=== PATIENT | female | born 1970 | race Caucasian/White ===

== ENCOUNTER → 2016-11-03 | Outpatient (CLI) | payer MEDICARE, MEDICAID ==
[~2016-11-03] MED LIST: AC500T PO; ARPZ20T PO; ASP81TEC PO; BUPR300T51 PO; CYCL10TA45; ESCI20TA2 PO; GADOBUTROL 7.5 MMOL/7.5 ML (GADAVIST) VIAL IV ONE; IBP800T PO; INTE0.3K2 SQ; OXYC-12 PO; PREG100C22 PO; SERT50TA9 PO; TOPI50TA2 PO; TRAZ150T42 PO; [UNRECOGNIZED DRUG - OTHER]
--- NOTE | 2016-11-03 11:53 | Diagnostic Imaging Report ---
PROCEDURE: MR imaging of the brain with and without contrast. TECHNIQUE: Multiplanar/multisequence MR imaging of the brain was performed with and without contrast. INDICATION: History of multiple sclerosis. Right sided weakness. CONTRAST: 6 mL of Gadovist was administered intravenously. COMPARISON: 07/26/2010. FINDINGS: There is no diffusion restriction to suggest an acute infarct or other diffusion abnormality. There are extensive periventricular and deep white matter T2 hyperintense signal abnormalities which could relate to the known history of multiple sclerosis. These findings could also overlap with chronic microvascular ischemic changes. The overall appearance, particularly in the periventricular white matter, demonstrates more prominent and confluent lesions. This could relate to a chronic increase in the demyelinating process or superimposed microvascular ischemic changes. There is no enhancing lesion seen. There is no significant signal abnormality in the brainstem. In the left cerebellar hemisphere and left cerebellar peduncle, there is T2 signal abnormality suggestive of a demyelinating plaque which appeared to be present on the 2011 study although better seen on the current exam. The central vascular flow-voids appear grossly unremarkable. There is normal size of the pituitary gland. No hypothalamic or pineal region mass. No hydrocephalus. No extra-axial fluid collection is seen. IMPRESSION: White matter findings are compatible with the provided history of multiple sclerosis. The lesions in the periventricular white matter appear to be slightly more prominent and more confluent when compared to the 2011 exam. Enhancement is a common feature of demyelinating lesions and is not seen on the current exam. Dictated by: Dictated on workstation # [id number]
--- NOTE | 2016-11-03 13:21 | Diagnostic Imaging Report ---
PROCEDURE: MR imaging cervical spine with and without contrast. TECHNIQUE: Multiplanar and multisequence MRI of the cervical spine was performed with and without contrast. INDICATION: History of multiple sclerosis. Right-sided weakness. 6 mL of Gadavist is administered intravenously. No prior studies are available for comparison. FINDINGS: The spinal cord is normal in caliber and contour. There are areas of increased faint poorly defined T2 signal within the spinal cord involving the entire length of the cervical spinal cord. These are seen on the axial images as well; however, the axial images in particular suffer from significant artifacts. Postcontrast images demonstrate no enhancing lesion. There is no significant swelling or edema which could relate to chronicity of these lesions. This, however, cannot be confirmed as no old studies are available. The posterior spinal line demonstrates normal alignment. C4 and C5 vertebral bodies are fused and are relatively small compared to the rest of the vertebral bodies. This is suggestive of a congenital or developmental fusion. There is no suspicious marrow signal abnormality. There is disc desiccation in the upper to mid cervical spine levels. C2/3: There is a minimal disc herniation without spinal canal or foramina stenosis. No cord compression. C3/4: There is a disc spur complex with no spinal canal stenosis. There is facet hypertrophy on the left with mild left foraminal stenosis. The right foramen is patent. The fused level at C4/5 demonstrates no spinal canal stenosis and no foraminal narrowing. C5/6: There is a spur disc complex with no spinal canal stenosis. No foraminal narrowing. C6/7: Unremarkable. IMPRESSION: 1. There is mild T2 hyperintensity signal abnormality within the cervical spinal cord which may relate to the provided history of multiple sclerosis. 2. Generally mild degenerative changes. 3. 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 Dictated by: Dictated on workstation # [id number]
== END ==
LOC: RAD 08:45
PROVIDERS: ATTEND Psychiatry & Neurology Neurology
DX: G35 Multiple sclerosis (principal); M43.22 Fusion of spine, cervical region
CPT/HCPCS: 70553; 72156

== ENCOUNTER → 2017-09-14 | Outpatient (CLI) | payer MEDICARE, MEDICAID ==
[~2017-09-14] MED LIST changes: -GADOBUTROL 7.5 MMOL/7.5 ML (GADAVIST) VIAL IV ONE
--- NOTE | 2017-09-14 11:17 | Diagnostic Imaging Report ---
INDICATION: Routine screening. COMPARISON: 09/20/2014. TECHNIQUE: 2D and 3D bilateral screening mammography was performed with CAD. FINDINGS: Both breasts remain heterogeneously dense, limiting the sensitivity of mammography. No mass or malignant appearing microcalcifications are seen. There are benign calcifications bilaterally. The axillae are unremarkable. IMPRESSION: No mammographic features suspicious for malignancy are identified. ACR BI-RADS Category 2: Benign findings. Result letter will be mailed to the patient. Note: At least 10% of breast cancer is not imaged by mammography. Dictated by: Dictated on workstation # [id number]
== END ==
LOC: RAD 08:25
PROVIDERS: ATTEND Nurse Practitioner Primary Care
DX: Z12.31 Encounter for screening mammogram for malignant neoplasm of breast (principal)
CPT/HCPCS: 77067

== ENCOUNTER 2017-09-22 15:25 | Emergency (ER) | payer MEDICARE, MEDICAID ==
[~2017-09-22] VITALS: Ht 162.6 cm; Wt 63.5 kg
--- NOTE | 2017-09-22 15:49 | ED General ---
General Chief Complaint: Chest Wall/Rib Pain Stated Complaint: HARD TIME BREATHING Source of Information: Patient Exam Limitations: No Limitations History of Present Illness Date Seen by Provider: Sep 22, 2017 Time Seen by Provider: 15:45 Initial Comments Patient is a 47-year-old female who presents to the emergency room with complaints of left-sided rib pain that started after she fell over a weight bench in her kitchen 3 days ago. She reports increased pain with deep breathing. She denies hitting her head, or neck pain. Timing/Duration: 2-3 Days Modifying Factors: improves with Movement Allergies and Home Medications Allergies Coded Allergies: Sulfa (Sulfonamide Antibiotics) (Verified Allergy, Unknown, 08/02/05) gabapentin (Unverified Allergy, RASH, ITCHING, 02/07/11) Home Medications Aripiprazole 20 Mg Tab, 1 TAB PO DAILY, (Reported) DAILY Aspirin 81 Mg Tabec, 81 MG PO DAILY, (Reported) Bupropion Hcl 300 Mg Tab.sr.24h, 300 MG PO DAILY, (Reported) Ibuprofen 800 Mg Tab, 800 MG PO NEEDED, (Reported) TAKE NEEDED FOR PAIN Oxycodone Hcl/Acetaminophen 1 Each Tablet, 1-2 EACH PO Q4H, (Reported) Pregabalin 100 Mg Capsule, 100 MG PO QID, (Reported) Sertraline Hcl 50 Mg Tablet, 50 MG PO DAILY, (Reported) Topiramate 50 Mg Tablet, 50 MG PO BID, (Reported) Trazodone Hcl 150 Mg Tablet, 150 MG PO HS, (Reported) Patient Home Medication List Home Medication List Reviewed: Yes Review of Systems Constitutional: see HPI; No chills, No fever Respiratory: see HPI; No cough, No dyspnea on exertion; other (pain with deep breathing) All Other Systems Reviewed Negative Unless Noted: Yes Past Lvlmqld-Vsxozp-Nfjmhu Hx Past Med/Social Hx: Reviewed Nursing Past Med/Soc Hx Immunizations Up To Date Date of Influenza Vaccine: Dec 10, 2010 Past Medical History Reproductive Disorders: Yes (REFRACTORY DUB) Family Medical History Reviewed Nursing Family Hx Physical Exam Vital Signs Vital Signs - First Documented 09/22/17 15:32 Temp 99.0 Pulse 89 Resp 18 B/P (MAP) 115/81 (92) Pulse Ox 99 O2 Delivery Room Air Capillary Refill : Height, Weight, BMI Height: '" Weight: lbs. oz. kg; BMI Method: General Appearance: No Apparent Distress, WD/WN Respiratory: Lungs Clear, Normal Breath Sounds, No Accessory Muscle Use, No Respiratory Distress, Other (tenderness to her left ribs on palpation, no abrasions or ecchymosis noted.) Cardiovascular: Regular Rate, Rhythm, No Edema, No Gallop, No JVD, No Murmur, Normal Peripheral Pulses Neurologic/Psychiatric: Alert, Oriented x3, Normal Mood/Affect Skin: Normal Color, Warm/Dry Progress/Results/Core Measures Suspected Sepsis SIRS Temperature: Pulse: Respiratory Rate: Blood Pressure / Mean: Results/Orders My Orders Orders - JAMIL SANDRA Ribs, Left 2-3 Views (09/22/17 15:43) Vital Signs/I&O Capillary Refill : Progress Note : Progress Note I've seen and evaluated the patient. She was informed of normal imaging studies. Patient agrees with plan of care, plans for discharge, close follow-up with primary care provider. Return precautions were given. Departure Impression Primary Impression: Rib pain Additional Impression: Rib contusion Qualified Codes: S20.212A - Contusion of left front wall of thorax, initial encounter Disposition: 01 HOME, SELF-CARE Condition: Stable/Unchanged Departure-Patient Inst. Decision time for Depature: 16:49 Referrals: MADHAV GARDNER DO (PCP) Primary Care Physician MEÑO MSATERS APRN (Family) Primary Care Physician Patient Instructions: Contusion (DC) Add. Discharge Instructions: You may use ibuprofen and Tylenol as directed by the bottle for pain. Follow-up with your doctor within 1 week for recheck. Return back to the emergency room for any worsening symptoms or concerns as needed. All discharge instructions reviewed with patient and/or family. Voiced understanding. JAMIL SANDRA Sep 22, 2017 15:49
--- NOTE | 2017-09-22 16:46 | Diagnostic Imaging Report ---
CLINICAL INDICATION: Patient fell a week ago landing on left side. Patient has pain in area since. No bruising or shortness of breath noted. EXAM: X-ray of the left ribs, three views. COMPARISON: Chest x-ray dated 10/15/2007. FINDINGS AND IMPRESSION: There is no gross fracture involving the left ribs. Left lung is clear. There is no pneumothorax. Dictated by: Dictated on workstation # [id number]
[2017-09-22 17:08] VITALS: BP 115/81
== END 2017-09-22 17:08 | disposition home or self-care (01) ==
LOC: EDUNIT# 15:25 → ER 15:28
DX: S20.212A Contusion of left front wall of thorax, initial encounter (principal); Z88.2 Allergy status to sulfonamides; Z88.8 Allergy status to other drugs, medicaments and biological substances; Z79.82 Long term (current) use of aspirin; W01.0XXA Fall on same level from slipping, tripping and stumbling without subsequent striking against object, initial encounter; Y92.000 Kitchen of unspecified non-institutional (private) residence as the place of occurrence of the external cause
CPT/HCPCS: 71100

== ENCOUNTER 2018-01-05 20:08 | Emergency (ER) | payer MEDICARE, MEDICAID ==
[~2018-01-05] VITALS: Ht 162.6 cm; Wt 56.7 kg
[2018-01-05] MEDS ORDERED: PANT40TA3 (20:21)
[2018-01-05] MEDS ORDERED: FLUO20CA25 (20:21)
[2018-01-05] MEDS ORDERED: PRAV40TA2 (20:21)
--- NOTE | 2018-01-05 21:14 | ED Cough/URI ---
General Chief Complaint: Cough/Cold/Flu Symptoms Stated Complaint: COUGH Nursing Triage Note: cough Source: patient History of Present Illness Date Seen by Provider: Jan 05, 2018 Time Seen by Provider: 20:57 Initial Comments PT ARRIVES VIA POV FROM HOME C/O NON-PRODUCTIVE COUGH X 1 WEEK--STATES SHE HAS MUCOUS IN HER CHEST BUT CANNOT COUGH IT UP C/O LEFT LOWER RIB PAIN, ESPECIALLY WITH COUGHING OR DEEP BREATHING NO ACTUAL SHORTNESS OF BREATH HAD TEMP OF 99 NO KNOWN SICK CONTACTS NO RELIEF WITH OTC MEDICATIONS FOR COUGH/CONGESTION/COLD/SINUS, OR IBUPROFEN HAS NOT SOUGHT CARE UNTIL TODAY SYMPTOMS NO DIFFERENT TODAY. PT SMOKES 1 PPD OF CIGARETTES, WELL THC MALE S.O. ALSO SMOKES LMP--PT HAS HAD HYST IN 2011 PCP: SRIKANTH-Alysha Allergies and Home Medications Allergies Coded Allergies: Sulfa (Sulfonamide Antibiotics) (Verified Allergy, Unknown, 08/02/05) gabapentin (Unverified Allergy, RASH, ITCHING, 02/07/11) Home Medications Aripiprazole 20 Mg Tab, 1 TAB PO DAILY, (Reported) DAILY Aspirin 81 Mg Tabec, 81 MG PO DAILY, (Reported) Benzonatate 100 Mg Capsule, 1-2 TAB PO TID Prescribed by: MIGUEL ÁNGEL PAZ on 01/05/182310 Guaifenesin/Dextromethorphan 1 Each Tbmp.12hr, 1 EACH PO BID Prescribed by: MIGUEL ÁNGEL PAZ on 01/05/182310 Ibuprofen 800 Mg Tab, 800 MG PO NEEDED, (Reported) TAKE NEEDED FOR PAIN Levofloxacin 500 Mg Tablet, 500 MG PO DAILY Prescribed by: MIGUEL ÁNGEL PAZ on 01/05/182310 Methylprednisolone 4 Mg Tab.ds.pk, 4 MG PO UD Prescribed by: MIGUEL ÁNGEL PZA on 01/05/182310 Pregabalin 100 Mg Capsule, 100 MG PO QID, (Reported) Topiramate 50 Mg Tablet, 50 MG PO BID, (Reported) Trazodone Hcl 150 Mg Tablet, 150 MG PO HS, (Reported) Patient Home Medication List Home Medication List Reviewed: Yes Review of Systems Review of Systems Constitutional: see HPI, fever EENTM: see HPI, tearing (LEFT EYE), nose congestion; No throat pain Respiratory: see HPI, cough; No short of breath, No wheezing Cardiovascular: see HPI, chest pain Gastrointestinal: no symptoms reported Genitourinary: no symptoms reported : No Musculoskeletal: see HPI Skin: no symptoms reported Psychiatric/Neurological: No Symptoms Reported Hematologic/Lymphatic: No Symptoms Reported Immunological/Allergic: no symptoms reported Past Aafvjvb-Zxfrnc-Dvzafr Hx Patient Social History Alcohol Use: Past History (HISTORY OF USE/ABUSE) Recreational Drug Use: Yes (THC) Drug of Choice: THC Smoking Status: Current Everyday Smoker (1 PPD) Type Used: Cigarettes (1 PPD) 2nd Hand Smoke Exposure: No Recent Foreign Travel: No Contact w/Someone Who Travel: No Recent Infectious Disease Expo: No Recent Hopitalizations: No Immunizations Up To Date Tetanus Booster (TDap): Unknown Date of Influenza Vaccine: Dec 10, 2010 Seasonal Allergies Seasonal Allergies: No Past Medical History Surgeries: Yes (ENDOMETRIAL ABLATION; HYST/OVARIES INTACT 2011; CYSTS REMOVED FROM ABDOMEN AND FROM BREAST-BENIGN) Hysterectomy, Tubal Ligation Respiratory: No Cardiac: No Neurological: Yes Headaches /Migraines, Multiple Sclerosis : No 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 oz. [id number]; 24.03 BMI Method:Stated General Appearance: no apparent distress, thin, other (OCCASIONAL DRY COUGH, UNKEMPT, CLOTHING COVERED IN ANIMAL HAIR) HEENT: PERRL/EOMI, TMs normal, pharynx normal, other (CLEAR POST NASAL DRAINAGE. NO SINUS TENDERNESS. 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, no motor/sensory deficits, alert, oriented x 3 Skin: warm/dry, pallor, tattoos/piercings (EXTENSIVE TATTOOS) Focused Exam Lactate Level 01/05/18 22:00: Lactic Acid Level 0.48L Lactic Acid Level Laboratory Tests Test 01/05/18 22:00 Lactic Acid Level 0.48 MMOL/L (0.50-2.00) L Progress/Results/Core Measures Suspected Sepsis Recent Fever Within 48 Hours: No Infection Criteria Present: None New/Unexplained Altered Menta: No Sepsis Screen: No Definite Risk SIRS Temperature:98.1 Pulse: 89 Respiratory Rate: 18 Laboratory Tests 01/05/18 22:00: White Blood Count 13.6H Blood Pressure 93 /60 Mean: 71 01/05/18 22:00: Lactic Acid Level 0.48L Laboratory Tests 01/05/18 22:00: Creatinine 0.66, Platelet Count 484H, Total Bilirubin 0.3 Results/Orders Lab Results Laboratory Tests Test 01/05/18 22:00 Range/Units White Blood Count 13.6 H 4.3-11.0 10^3/uL Red Blood Count 3.87 L 4.35-5.85 10^6/uL Hemoglobin 11.7 11.5-16.0 G/DL Hematocrit 35 35-52 % Mean Corpuscular Volume 91 80-99 FL Mean Corpuscular Hemoglobin 30 25-34 PG Mean Corpuscular Hemoglobin Concent 33 32-36 G/DL Red Cell Distribution Width 13.4 10.0-14.5 % Platelet Count 484 H 130-400 10^3/uL Mean Platelet Volume 8.6 7.4-10.4 FL Neutrophils (%) (Auto) 68 42-75 % Lymphocytes (%) (Auto) 21 12-44 % Monocytes (%) (Auto) 9 0-12 % Eosinophils (%) (Auto) 2 0-10 % Basophils (%) (Auto) 1 0-10 % Neutrophils # (Auto) 9.2 H 1.8-7.8 X 10^3 Lymphocytes # (Auto) 2.8 1.0-4.0 X 10^3 Monocytes # (Auto) 1.2 H 0.0-1.0 X 10^3 Eosinophils # (Auto) 0.3 0.0-0.3 10^3/uL Basophils # (Auto) 0.1 0.0-0.1 10^3/uL Sodium Level 141 135-145 MMOL/L Potassium Level 3.5 L 3.6-5.0 MMOL/L Chloride Level 108 H 98-107 MMOL/L Carbon Dioxide Level 22 21-32 MMOL/L Anion Gap 11 5-14 MMOL/L Blood Urea Nitrogen 7 7-18 MG/DL Creatinine 0.66 0.60-1.30 MG/DL Estimat Glomerular Filtration Rate > 60 BUN/Creatinine Ratio 11 Glucose Level 110 H 70-105 MG/DL Lactic Acid Level 0.48 L 0.50-2.00 MMOL/L Calcium Level 9.3 8.5-10.1 MG/DL Corrected Calcium 9.7 8.5-10.1 MG/DL Total Bilirubin 0.3 0.1-1.0 MG/DL Aspartate Amino Transf (AST/SGOT) 11 5-34 U/L Alanine Aminotransferase (ALT/SGPT) 11 0-55 U/L Alkaline Phosphatase 81 40-136 U/L Total Protein 7.4 6.4-8.2 GM/DL Albumin 3.5 3.2-4.5 GM/DL Micro Results Microbiology 01/05/18 Influenza Types A,B Antigen (PHAN) - Final, Complete My Orders Orders - MIGUEL ÁNGEL PAZ DO Chest Pa/Lat (2 View) (01/05/18 21:05) Saline Lock/Iv-Start (01/05/18 21:52) Cbc With Automated Diff (01/05/18 21:52) Comprehensive Metabolic Panel (01/05/18 21:52) Lactic Acid Analyzer (01/05/18 21:52) Blood Culture (01/05/18 21:52) Influenza A And B Antigens (01/05/18 21:52) Ceftriaxone For Iv Use (Rocephin For I (01/05/18 22:00) Acetaminophen Tablet (Tylenol Tablet) (01/05/18 23:00) Benzonatate Capsule (Tessalon Perles) (01/05/18 23:15) Benzonatate Capsule (Tessalon Perles) (01/05/18 23:08) Medications Given in ED Current Medications Medications Dose Ordered Sig/Devora Route Start Time Stop Time Status Last Admin Dose Admin Acetaminophen 1,000 mg ONCE ONCE PO 01/05/18 23:00 01/05/18 23:01 DC 01/05/18 23:06 1,000 MG Ceftriaxone Sodium 1000 mg/ Sodium Chloride 60 ml @ 100 mls/hr ONCE ONCE IV 01/05/18 22:00 01/05/18 22:35 DC 01/05/18 22:29 100 MLS/HR Vital Signs/I&O 01/05/18 01/05/18 01/05/18 01/05/18 20:10 20:10 23:06 23:17 Temp 98.1 98.1 100.5 Pulse 89 75 Resp 18 18 B/P (MAP) 93/60 (71) 93/61 (72) Pulse Ox 95 99 O2 Delivery Room Air Room Air Room Air 01/06/18 00:00 Intake Total 60 ml Balance 60 ml Capillary Refill : Less Than 3 Seconds Blood Pressure Mean: 71 Progress Note : Progress Note NO DETERIORATION IN PT'S CONDITION DURING ER STAY BP IN 90'S SYSTOLIC, BUT THIS APPEARS TO BE PT'S NORMAL BP, SHE IS VERY THIN AND PETITE, AND HAS HAD BP'S IN THIS RANGE IN THE PAST. NO TACHYCARDIA OR TACHYPNEA NO DYSPNEA NO HYPOXIA. Diagnostic Imaging Comments CXR--LEFT BASILAR PNEUMONIA, CANNOT R/O UNDERLYING NODULE. PER RADIOLOGIST REPORT @ 2201 Reviewed: Reviewed by Me Departure Communication (Admissions) 2300--SPOKE WITH DR. GARDNER, WILL SEE PT IN CLINIC THIS WEEK FOR FOLLOW UP --PT TO CALL IN AM FOR APPOINTMENT. WILL TREAT WITH ANTIBIOTICS, PT WILL NOT GIVE TAMIFLU, PT'S SYMPTOMS HAVE BEEN ONGOING FOR A WEEK, AND IS OUTSIDE TREATMENT PARAMETERS. Impression Primary Impression: LLL pneumonia Additional Impressions: Smoker Second hand tobacco smoke exposure Influenza B Disposition: HOME, SELF-CARE Condition: Stable Departure-Patient Inst. Referrals: [facility] (PCP/Family) Primary Care Physician Patient Instructions: Flu, Adult (DC), Pneumonia, Adult (DC) Add. Discharge Instructions: HOME, REST LOTS OF CLEAR LIQUIDS TYLENOL AND MOTRIN NEEDED FOR PAIN OR FEVER FOLLOW UP WITH [facility] THIS WEEK FOR FURTHER CARE--CALL IN AM FOR APPOINTMENT All discharge instructions reviewed with patient and/or family. Voiced understanding. Scripts Methylprednisolone (Medrol) 4 Mg Tab.ds.pk 4 MG PO UD, #1 PKG Prov: MIGUEL ÁNGEL PAZ DO 01/05/18 Benzonatate (TESSALON PERLES) 100 Mg Capsule 1-2 TAB PO TID for Cough, #30 CAP Prov: MIGUEL ÁNGEL PAZ DO 01/05/18 Guaifenesin/Dextromethorphan (Mucinex Dm ER 1,200-60 mg Tab) 1 Each Tbmp.12hr 1 EACH PO BID for 10 Days, #20 EA Prov: MIGUEL ÁNGEL PAZ DO 01/05/18 Levofloxacin (Levaquin) 500 Mg Tablet 500 MG PO DAILY for INFECTION, #10 TAB Prov: MIGUEL ÁNGEL PAZ DO 01/05/18 MIGUEL ÁNGEL PAZ DO Jan 05, 2018 21:14
--- NOTE | 2018-01-05 21:58 | Diagnostic Imaging Report ---
INDICATION: Cough. Shortness of air. COMPARISON: 09/22/2017 FINDINGS: Frontal and lateral radiographic views of the chest were obtained and demonstrate patchy and confluent alveolar opacities within the left lung base. There is more focal nodular area just lateral to the left heart border that measures 2 cm in diameter. Right lung is relatively clear. There is no large effusion or pneumothorax on either side. Cardiac silhouette and pulmonary vasculature are within normal limits. IMPRESSION: 1. Findings consistent with left basilar pneumonia. Followup to resolution is recommended to exclude underlying pulmonary nodule. Dictated by: Dictated on workstation # [id number]
[2018-01-05] MEDS ORDERED: cefTRIAXone FOR IV USE 1,000 MG in NS (IVPB) 50 ML IV ONE (22:00)
[2018-01-05 22:17] LABS: BASOPHILS # (AUTO) 0.1 10^3/uL (0.0-0.1); BASOPHILS % (AUTO) 1 % (0-10); EOSINOPHILS # (AUTO) 0.3 10^3/uL (0.0-0.3); EOSINOPHILS % (AUTO) 2 % (0-10); HEMATOCRIT 35 % (35-52); HEMOGLOBIN 11.7 G/DL (11.5-16.0); LYMPHOCYTES # (AUTO) 2.8 X 10^3 (1.0-4.0); LYMPHOCYTES % (AUTO) 21 % (12-44); MEAN CORPUSCULAR HEMOGLOBIN 30 PG (25-34); MEAN CORPUSCULAR HGB CONC 33 G/DL (32-36); MEAN CORPUSCULAR VOLUME 91 FL (80-99); MEAN PLATELET VOLUME 8.6 FL (7.4-10.4); MONOCYTES # (AUTO) 1.2 X 10^3 (0.0-1.0); MONOCYTES % (AUTO) 9 % (0-12); NEUTROPHILS # (AUTO) 9.2 X 10^3 (1.8-7.8); NEUTROPHILS % (AUTO) 68 % (42-75); PLATELET COUNT 484 10^3/uL (130-400); RED BLOOD COUNT 3.87 10^6/uL (4.35-5.85); RED CELL DISTRIBUTION WIDTH 13.4 % (10.0-14.5); WHITE BLOOD COUNT 13.6 10^3/uL (4.3-11.0)
[2018-01-05 22:53] LABS: ALANINE AMINOTRANSFERASE 11 U/L (0-55); ALBUMIN 3.5 GM/DL (3.2-4.5); ALKALINE PHOSPHATASE 81 U/L (40-136); BILIRUBIN,TOTAL 0.3 MG/DL (0.1-1.0); BUN/CREATININE RATIO 11; CALCIUM 9.3 MG/DL (8.5-10.1); CARBON DIOXIDE 22 MMOL/L (21-32); CHLORIDE 108 MMOL/L (98-107); CREATININE SERUM 0.66 MG/DL (0.60-1.30); GFR ESTIMATED > 60; GLUCOSE 110 MG/DL (70-105); POTASSIUM 3.5 MMOL/L (3.6-5.0); SODIUM 141 MMOL/L (135-145); TOTAL PROTEIN 7.4 GM/DL (6.4-8.2)
[2018-01-05] MEDS ORDERED: ACETAMINOPHEN 500 MG TAB (TYLENOL) PO ONE (23:00)
[2018-01-05] MEDS ORDERED: BENZONATATE 100 MG (TESSALON) CAPSULE PO ONE (23:08)
[2018-01-05] MEDS ORDERED: GUAI1TBM19 PO (23:11)
[2018-01-05] MEDS ORDERED: BENZ100C18 PO (23:11)
[2018-01-05] MEDS ORDERED: LEVO500T2 PO (23:11)
[2018-01-05] MEDS ORDERED: METH4TAB PO (23:11)
[2018-01-05] MEDS ORDERED: BENZONATATE 100 MG (TESSALON) CAPSULE PO SCH (23:15)
[2018-01-05 23:17] VITALS: BP 93/61
== END 2018-01-05 23:17 | disposition home or self-care (01) ==
LOC: EDUNIT# 20:08 → ER 20:10
DX: J18.1 Lobar pneumonia, unspecified organism (principal); J10.1 Influenza due to other identified influenza virus with other respiratory manifestations; G43.909 Migraine, unspecified, not intractable, without status migrainosus; G35 Multiple sclerosis; K21.9 Gastro-esophageal reflux disease without esophagitis; F41.9 Anxiety disorder, unspecified; F32.9 Major depressive disorder, single episode, unspecified; F12.10 Cannabis abuse, uncomplicated; F17.210 Nicotine dependence, cigarettes, uncomplicated; Z90.710 Acquired absence of both cervix and uterus; Z98.51 Tubal ligation status; Z88.2 Allergy status to sulfonamides; Z88.8 Allergy status to other drugs, medicaments and biological substances; Z79.82 Long term (current) use of aspirin; Z79.52 Long term (current) use of systemic steroids
CPT/HCPCS: 36415; 71046; 80053; 83605; 85025; 87040; 87804

== ENCOUNTER 2021-07-23 15:26 | Emergency (ER) | payer MEDICARE, MEDICAID ==
[~2021-07-23] VITALS: Ht 162.5 cm; Wt 54.4 kg
[~2021-07-23 15:26] MED LIST changes: +BENZ100C18 PO; +FLUO20CA48; +GUAI1TBM19 PO; +LEVO500T2 PO; +METH4TAB PO; +PANT40TA52; +PRAV40TA2
[2021-07-23 16:12] VITALS: BP 107/75
--- NOTE | 2021-07-23 16:13 | ED Hip Pain/Injury ---
General Chief Complaint: Hip/Pelvic Problems Stated Complaint: R HIP PAIN X 1 MONTH Source: patient Exam Limitations: no limitations (JEREMY WADSWORTH APRN) History of Present Illness Date Seen by Provider: Jul 23, 2021 Time Seen by Provider: 16:05 Initial Comments This is a 51-year-old female who presented to the ER via POV with complaints of right hip pain x1 month. States that she has persistent pain every day and will occasionally have intermittent increased sharp stabbing pain. Denies any trauma or injury. Uses a cane to ambulate. Pain is worse with movement and better with Tylenol or Ibuprofen. States pain will now radiate down her lateral right hip. Denies any back pain. No fever, chills, nausea, vomiting, abdominal pain. (JEREMY WADSWORTH APRN) Allergies and Home Medications Allergies Coded Allergies: Sulfa (Sulfonamide Antibiotics) (Verified Allergy, Unknown, 08/02/05) gabapentin (Unverified Allergy, Unknown, RASH, ITCHING, 07/23/21) Patient Home Medication List Home Medication List Reviewed: Yes (JEREMY WADSWORTH APRN) Aripiprazole (Abilify 20 Mg) 20 Mg Tab, 1 TAB PO DAILY, (Reported) Entered as Reported by: SARA MANUEL on 02/07/11 0857 Aspirin (Aspirin Ec 81 Mg) 81 Mg Tabec, 81 MG PO DAILY, (Reported) Entered as Reported by: SARA MANUEL on 02/07/11 0857 Benzonatate (Tessalon Perles) 100 Mg Capsule, 1-2 TAB PO TID Prescribed by: MIGUEL ÁNGEL PAZ on 01/05/182310 Diclofenac Sodium (Voltaren Arthritis Pain) 1 % Gel..gram., 1 APPLIC TP Q6H PRN for PAIN-BREAKTHROUGH Prescribed by: JEREMY WADSWORTH on 07/23/211808 Fluoxetine HCl (Fluoxetine HCl) 20 Mg Capsule, (Reported) Entered as Reported by: LAURENCE BEYER on 01/05/182020 Guaifenesin/Dextromethorphan (Mucinex Dm ER 1,200-60 mg Tab) 1 Each Tbmp.12hr, 1 EACH PO BID Prescribed by: MIGUEL ÁNGEL PAZ on 01/05/182310 Ibuprofen (Motrin) 800 Mg Tab, 800 MG PO NEEDED, (Reported) Entered as Reported by: SARA MANUEL on 02/07/11856 Levofloxacin (Levaquin) 500 Mg Tablet, 500 MG PO DAILY Prescribed by: MIGUEL ÁNGEL PAZ on 01/05/182310 Methylprednisolone (Medrol) 4 Mg Tab.ds.pk, 4 MG PO UD Prescribed by: MIGUEL ÁNGEL PAZ on 01/05/182310 Pantoprazole Sodium (Pantoprazole Sodium) 40 Mg Tablet., (Reported) Entered as Reported by: LAURENCE BEYER on 01/05/182020 Pravastatin Sodium (Pravastatin Sodium) 40 Mg Tablet, (Reported) Entered as Reported by: LAURENCE BEYER on 01/05/182020 Pregabalin (Lyrica) 100 Mg Capsule, 100 MG PO QID, (Reported) Entered as Reported by: SARA MANUEL on 02/07/11856 Topiramate (Topiramate) 50 Mg Tablet, 50 MG PO BID, (Reported) Entered as Reported by: SARA MANUEL on 02/07/11856 Trazodone Hcl (Trazodone Hcl) 150 Mg Tablet, 150 MG PO HS, (Reported) Entered as Reported by: SARA MANUEL on 02/07/11856 Review of Systems Constitutional: see HPI EENTM: no symptoms reported Respiratory: no symptoms reported Cardiovascular: no symptoms reported Gastrointestinal: no symptoms reported Musculoskeletal: see HPI Skin: no symptoms reported Psychiatric/Neurological: No Symptoms Reported (JEREMY WADSWORTH APRN) Past Tvaykvq-Uhwghk-Cxvosk Hx Immunizations Up To Date Tetanus Booster (TDap): Unknown (JEREMY WADSWORTH APRN) Seasonal Allergies Seasonal Allergies: No (JEREMY WADSWORTH APRN) Past Medical History Surgeries: Yes Hysterectomy, Tubal Ligation Respiratory: No Cardiac: No Neurological: Yes Headaches /Migraines, Multiple Sclerosis Reproductive Disorders: Yes (REFRACTORY DUB) 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 oz. 56.540824so; 24.03 BMI Method:Stated General Appearance: No Apparent Distress, WD/WN HEENT: PERRL/EOMI, Normal ENT Inspection Neck: Full Range of Motion, Normal Inspection Cardiovascular: Regular Rate, Rhythm, No Murmur Respiratory: Lungs Clear, Normal Breath Sounds Gastrointestinal: Normal Bowel Sounds, Non Tender, Soft Back: Normal Inspection Extremity: Normal Capillary Refill, Normal Inspection, No Calf Tenderness; No Swelling; Other (Right hip pain, skin pink, warm dry, pedal pulse 2+ and regular. ) Neurologic/Psychiatric: Alert, Oriented x3, No Motor/Sensory Deficits, Normal Mood/Affect Skin: Normal Color, Warm/Dry (JEREMY WADSWORTH APRN) Progress/Results/Core Measures Results/Orders Vital Signs/I&O 07/23/21 16:12 Temp 36.8 Pulse 81 Resp 18 B/P (MAP) 107/75 (86) Pulse Ox 96 (MURIEL PENNY MD) Progress Progress Note : Progress Note Patient examined and in no acute distress. Neurovascular intact distal to right hip, good pulses good color. She ambulated independently with a cane to Jostle- track 2. Orders placed for imaging of her right hip which did not reveal any acute fractures. She does have some degenerative changes, questionable concerns for AVN. Reviewed imaging with Dr. Avitia, orthopedic surgeon on-call. States that patient can bear weight as tolerated, utilize cane when ambulating. She can follow-up outpatient in office. Discharge plan of care reviewed with patient she is agreeable with plan. (JEREMY WADSWORTH APRN) Diagnostic Imaging Diagonstic Imaging: Xray Comments [facility], [place] NAME: JORDAN THOMAS [facility] REC#: [id number] PT STATUS: REG ER : 1970 PHYSICIAN: JEREMY WADSWORTH APRN ADMIT DATE: 07/23/21/ER Signed Date of Exam:07/23/21 PELVIS WITH RIGHT HIP 2-3VIEWS INDICATION: Hip pain. TECHNIQUE: AP pelvis and two-view right hip performed. COMPARISON: Exam correlated with hip radiographs of 07/25/2010. FINDINGS: There is progressive right greater than left hip joint space narrowing, articular irregularity, flattening, osteophytes, and subcortical cyst as well as patchy heterogeneous sclerosis and at least some degree of articular collapse of its weightbearing surface. No acute bony abnormality is found. The contralateral left hip by comparison shows mild degenerative changes. There are some soft tissue calcifications of the buttocks projecting over the lateral iliac bones. No symphyseal or SI joint diastasis. IMPRESSION: Progressive sclerosis, lucency, and articular collapse of the degenerated right hip, sequelae of AVN could not be excluded. Femoral neck and trochanters are intact and an acute-appearing abnormality is not identified. Dictated by: Dictated on workstation # [id number] Dict: 07/23/21 1648 Trans: 07/23/21 1711 [id number] Interpreted by: MERLY HAUSER Electronically signed by: MERLY HAUSER 07/23/21 171 (JEREMY WADSWORTH SENIOR TECHNICAL PROJECT MANAGER) Departure Impression Primary Impression: Degenerative arthritis of hip Disposition: 01 HOME, SELF-CARE Condition: Stable Departure-Patient Inst. Decision time for Depature: 17:33 (JEREMY WADSWORTH SENIOR TECHNICAL PROJECT MANAGER) Referrals: [facility] (PCP/Family) Primary Care Physician Patient Instructions: LOCAL PHYSICIAN LIST, Osteoarthritis (DC) Add. Discharge Instructions: Plan: 1. Rest. Weight bearing as tolerated. Walk with cane. 2. May take Tylenol or Ibuprofen as needed for pain per package. 3. You can try a small amount of Diclofenac gel up to 4x per day. 4. Follow up with orthopedic provider of choice, you have been given a list of local providers. 5. Return to ER for any new, concerning, or worsening symptoms. All discharge instructions reviewed with patient and/or family. Voiced understa nding. Scripts Diclofenac Sodium (Voltaren Arthritis Pain) 1 % Gel..gram. 1 APPLIC TP Q6H PRN for PAIN-BREAKTHROUGH, #20 GM 0 Refills Prov: JEREMY WADSWORTH SENIOR TECHNICAL PROJECT MANAGER 07/23/21 ATTENDING PHYSICIAN NOTE: I was physically present as attending physician in the emergency department during the care of this patient, but I was not directly involved in the decision making or delivery of care for this patient. (MURIEL PENNY MD) JEREMY WADSWORTH APRN Jul 23, 2021 16:13 MURIEL PENNY MD Jul 25, 2021 21:16
--- NOTE | 2021-07-23 16:58 | Diagnostic Imaging Report ---
INDICATION: Hip pain. TECHNIQUE: AP pelvis and two-view right hip performed. COMPARISON: Exam correlated with hip radiographs of 07/25/2010. FINDINGS: There is progressive right greater than left hip joint space narrowing, articular irregularity, flattening, osteophytes, and subcortical cyst as well as patchy heterogeneous sclerosis and at least some degree of articular collapse of its weightbearing surface. No acute bony abnormality is found. The contralateral left hip by comparison shows mild degenerative changes. There are some soft tissue calcifications of the buttocks projecting over the lateral iliac bones. No symphyseal or SI joint diastasis. IMPRESSION: Progressive sclerosis, lucency, and articular collapse of the degenerated right hip, sequelae of AVN could not be excluded. Femoral neck and trochanters are intact and an acute-appearing abnormality is not identified. Dictated by: Dictated on workstation # [id number]
[2021-07-23] MEDS ORDERED: DICL20GE TP (18:09)
== END 2021-07-23 18:14 | disposition home or self-care (01) ==
LOC: EDUNIT# 15:26 → ER 15:27
DX: M16.11 Unilateral primary osteoarthritis, right hip (principal)
CPT/HCPCS: 99281

== ENCOUNTER 2021-09-24 09:39 | Emergency (ER) | payer MEDICARE, MEDICAID ==
[~2021-09-24] VITALS: Ht 164 cm; Wt 54.5 kg
[~2021-09-24 09:39] MED LIST changes: +DICL20GE TP
[2021-09-24 09:45] VITALS: BP 109/71
--- NOTE | 2021-09-24 10:06 | ED Integumentary General ---
General Chief Complaint: Skin/Wound Problems Stated Complaint: SPIDER BITE Source: patient Exam Limitations: no limitations History of Present Illness Date Seen by Provider: Sep 24, 2021 Time Seen by Provider: 10:00 Initial Comments Patient is a 51-year-old female who presents to the emergency department today with a chief complaint of a wound on her right scapula. Patient states that she thinks she got a "spider bite" about a week ago. She has been cleaning it with alcohol daily. She is concerned for infection. No fevers, chills, cough or congestion. No drainage from the area. She is not a diabetic. All other review of systems reviewed and negative except as stated Timing/Duration: week Severity: mild Possible Cause: other (unsure) Associated Symptoms: denies symptoms Allergies and Home Medications Allergies Coded Allergies: Sulfa (Sulfonamide Antibiotics) (Verified Allergy, Unknown, 08/02/05) gabapentin (Unverified Allergy, Unknown, RASH, ITCHING, 07/23/21) Patient Home Medication List Home Medication List Reviewed: Yes Aripiprazole (Abilify 20 Mg) 20 Mg Tab, 1 TAB PO DAILY, (Reported) Entered as Reported by: SARA MANUEL on 02/07/11856 Aspirin (Aspirin Ec 81 Mg) 81 Mg Tabec, 81 MG PO DAILY, (Reported) Entered as Reported by: SARA MANUEL on 02/07/11856 Benzonatate (Tessalon Perles) 100 Mg Capsule, 1-2 TAB PO TID Prescribed by: MIGUEL ÁNGEL PAZ on 01/05/182310 Diclofenac Sodium (Voltaren Arthritis Pain) 1 % Gel..gram., 1 APPLIC TP Q6H PRN for PAIN-BREAKTHROUGH Prescribed by: JEREMY WADSWORTH on 07/23/21 180 Fluoxetine HCl (Fluoxetine HCl) 20 Mg Capsule, (Reported) Entered as Reported by: LAURENCE BEYER on 01/05/182020 Guaifenesin/Dextromethorphan (Mucinex Dm ER 1,200-60 mg Tab) 1 Each Tbmp.12hr, 1 EACH PO BID Prescribed by: MIGUEL ÁNGEL PAZ on 01/05/182310 Ibuprofen (Motrin) 800 Mg Tab, 800 MG PO NEEDED, (Reported) Entered as Reported by: SARA MANUEL on 02/07/11856 Levofloxacin (Levaquin) 500 Mg Tablet, 500 MG PO DAILY Prescribed by: MIGUEL ÁNGEL PAZ on 01/05/182310 Methylprednisolone (Medrol) 4 Mg Tab.ds.pk, 4 MG PO UD Prescribed by: MIGUEL ÁNGEL PAZ on 01/05/182310 Pantoprazole Sodium (Pantoprazole Sodium) 40 Mg Tablet., (Reported) Entered as Reported by: LAURENCE BEYER on 01/05/182020 Pravastatin Sodium (Pravastatin Sodium) 40 Mg Tablet, (Reported) Entered as Reported by: LAURENCE BEYER on 01/05/182020 Pregabalin (Lyrica) 100 Mg Capsule, 100 MG PO QID, (Reported) Entered as Reported by: SARA MANUEL on 02/07/11856 Topiramate (Topiramate) 50 Mg Tablet, 50 MG PO BID, (Reported) Entered as Reported by: SAAR MANUEL on 02/07/11856 Trazodone Hcl (Trazodone Hcl) 150 Mg Tablet, 150 MG PO HS, (Reported) Entered as Reported by: SARA MANUEL on 02/07/11856 Review of Systems Review of Systems Constitutional: see HPI EENTM: no symptoms reported Respiratory: no symptoms reported Gastrointestinal: no symptoms reported Musculoskeletal: no symptoms reported Skin: other (wound right shoulder) All Other Systems Reviewed Negative Unless Noted: Yes Past Mvbaqru-Lsbwba-Xnonfg Hx Patient Social History Tobacco Use?: Yes Tobacco type used: Cigarettes Smoking Status: Current Everyday Smoker Use of E-Cig and/or Vaping dev: No Substance use?: Yes Substance type: Marijuana Substance frequency: Couple times a week Alcohol Use?: No Pt feels they are or have been: No Immunizations Up To Date Tetanus Booster (TDap): Unknown Seasonal Allergies Seasonal Allergies: No Past Medical History Surgeries: Yes Hysterectomy, Tubal Ligation Respiratory: No Cardiac: No Neurological: Yes Headaches /Migraines, Multiple Sclerosis Reproductive Disorders: Yes (REFRACTORY DUB) 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: Hysterectomy, Tubal Ligation, Menopausal Sexually Transmitted Disease: No Genitourinary: No Gastrointestinal: Yes Gastroesophageal Reflux Musculoskeletal: Yes (MULTIPLE SCLEROSIS) Endocrine: No HEENT: No Cancer: No Psychosocial: Yes Anxiety, Depression Integumentary: No Blood Disorders: No Physical Exam Vital Signs Capillary Refill : General Appearance: WD/WN, no apparent distress, thin Neck: supple, normal inspection Cardiovascular: regular rate, rhythm Respiratory: lungs clear, normal breath sounds, no respiratory distress, no accessory muscle use Extremities: normal range of motion Skin: normal color, warm/dry, other (Small area the size of a dime overlying the right mid scapula, mildly ulcerated with raised erythematous margins. Eschar noted in the center. No swelling/induration or fluctuance. No drainage. No surrounding erythema.) Departure Impression Primary Impression: ulceration right shoulder blade Disposition: 01 HOME, SELF-CARE Condition: Stable Departure-Patient Inst. Decision time for Depature: 10:05 Referrals: [facility] (PCP/Family) Primary Care Physician Patient Instructions: Wound Care ED Add. Discharge Instructions: Keep the area clean and dry. Wash gently with soap and water. Do not use peroxide or alcohol anymore on the wound. Apply a little triple antibiotic ointment twice daily with a bandage. If you develop a fever, pain, drainage please come back to the emergency room for reevaluation. Copy Copies To 1: [facility]/ZOYA DURAND MD Sep 24, 2021 10:06
== END 2021-09-24 10:13 | disposition home or self-care (01) ==
LOC: EDUNIT# 09:39 → ER 09:42
DX: L98.498 Non-pressure chronic ulcer of skin of other sites with other specified severity (principal); F17.210 Nicotine dependence, cigarettes, uncomplicated; Z28.310 Unvaccinated for COVID-19
CPT/HCPCS: 99281